=== PATIENT | female | born 1965 | race Caucasian/White ===

== ENCOUNTER 2016-10-11 11:13 | Day surgery (SDC) | payer OTHER ==
[~2016-10-11 11:13] MED LIST: AMB10 PO; LIPITOR10 PO; MULTIPLE VIT PO; V5 PO; VIT E; WELLXL150 PO
== END 2016-10-11 23:59 | disposition home or self-care (01) ==
LOC: MSC 11:13
PROVIDERS: Surgery Plastic and Reconstructive Surgery
PROC: 0H0V0JZ Alteration of Bilateral Breast with Synthetic Substitute, Open Approach (ICD-10-PCS; principal; 2016-10-11 11:30)
DX: Z41.1 Encounter for cosmetic surgery (principal); E78.5 Hyperlipidemia, unspecified; F41.9 Anxiety disorder, unspecified; F17.210 Nicotine dependence, cigarettes, uncomplicated; Z98.890 Other specified postprocedural states
CPT/HCPCS: 80048; 85014; 85018; A9270-GY; C1789; J0690; J1580; J2250; J2270; J2405; J3010